=== PATIENT | male | born 1995 | race Caucasian/White ===

== ENCOUNTER 2016-03-26 15:44 | Emergency (ER) | payer OTHER ==
[~2016-03-26] VITALS: Ht 175.3 cm; Wt 97.4 kg
[~2016-03-26 15:44] MED LIST: ALBUAER2 INH; AMPH30CA3 PO; FEXO1TAB49 PO; FLUT0.15 NAE; OLOP0.6S NAE; OMEP40CA41 PO; SNG10 PO
[2016-03-26 15:52] VITALS: BP 161/80; PULSE 95; TEMP 36.9; O2SAT 97; Ht 175.3 cm; Wt 97.4 kg
--- NOTE | 2016-03-26 17:35 | EMERGENCY ROOM VISIT NOTE ---
History Report prepared by Erich: Ramila Forman Under the Supervision of: Dr. Finn Bernal M.D. First contact with patient: 15:55 Chief Complaint: COUGH Stated Complaint: GREEN DISCHARGE FROM NOSE,COUGH,LOSING VOICE History of Present Illness The patient is a 20 year old male who presents to the Emergency Room with complaints of a worsening productive cough for the past 5 days. He notes green rhinorrhea, sinus congestion, and ear pain. He has been losing his voice. His symptoms are worse at night. He rates his pain as a 4/10. The patient denies fever. Source of History: patient Onset: 5 days ago Position: chest (cough) Symptom Intensity: 4/10 Quality: other (productive) Timing: worsening Modifying Factors (Worsening): other (nighttime) Associated Symptoms: No fevers Review of Systems See HPI for pertinent positives & negatives. A total of 10 systems reviewed and were otherwise negative. Past Medical & Surgical Medical Problems: (1) ADHD (attention deficit hyperactivity disorder) (2) Asthma (3) GERD (gastroesophageal reflux disease) Family History Cancer Lung disease Seizures Social History Smoking Status: Never Smoker Alcohol Use: none Drug Use: none Marital Status: single Housing Status: lives with roommate Occupation Status: employed, [employer] student Current/Historical Medications Scheduled Amphetamine-Dextroamphetamine 30MG (Adderall Xr 30MG), 30 MG PO QAM Fexofenadine Hcl (Patsy Allergy), 1 TAB PO HS Fluticasone Propionate (Nasal) (Flonase Allergy Relief), 2 SPRAYS ELIEZER BID Montelukast Sod (Montelukast Sodium), 10 MG PO DAILY Olopatadine Hcl (Nasal) (Patanase), 2 SPRY ELIEZER BID Omeprazole (Prilosec), 40 MG PO DAILY Scheduled PRN Albuterol (Ventolin), 2 PUFFS INH Q4-6HRS PRN for SOB/Wheezing Allergies Coded Allergies: No Known Allergies (Unverified , 03/26/16) Physical Exam Vital Signs Date Time Temp Pulse Resp B/P Pulse Ox O2 Delivery O2 Flow Rate FiO2 03/26/16 16:07 96 Room Air 03/26/16 15:52 36.9 95 18 161/80 97 Room Air Physical Exam CONSTITUTIONAL: Mild distress. HEENT: No icterus, moist mucous membranes, TMs clear bilaterally, oropharynx clear. NECK: No meningismus, trachea is midline. CARDIOVASCULAR: Regular rate, normal perfusion RESPIRATORY: Unlabored breathing. Clear to auscultation. GASTROINTESTINAL: Non-tender GENITOURINARY: No flank tenderness MUSCULOSKELETAL: Full range of motion NEUROLOGIC: No acute gross focal deficits. PSYCHIATRIC: Normal affect SKIN: Normal for ethnicity. Medical Decision & Procedures ED Course 1555: Past medical records reviewed. The patient was evaluated in room C4. A complete history and physical examination was performed. At this time I discussed the results and treatment plan with the patient. I answered all pertaining questions that he had. He expressed understanding and verbalized agreement. The patient will be discharged home. Medical Decision Differential diagnoses includes viral syndrome, pneumonia. 20-year-old presented to the emergency room for evaluation of several days of upper respiratory symptoms and cough without shortness of breath. HEENT exam was normal lungs were clear. Patient advised likely viral syndrome or flu. He was counseled regarding use [id number] decongestants as well as antipyretics and analgesics and was given a [id number] prescription for a Z- Robe. Impression Primary Impression: Bronchitis Additional Impression: Upper respiratory infection Scribe Attestation The scribe's documentation has been prepared under my direction and personally reviewed by me in its entirety. I confirm that the note above accurately reflects all work, treatment, procedures, and medical decision making performed by me. Departure Information Dispostion Home / Self-Care Referrals [facility] (PCP) Forms HOME CARE DOCUMENTATION FORM, IMPORTANT VISIT INFORMATION Patient Instructions A Signature Page, ED Bronchitis Viral, My [facility] Additional Instructions For fever or pain: Take Tylenol 650mg and Motrin 600mg every 6 hours. For congestion: Afrin Nasal Mist and Pseudoephedrine Wait and see Rx :Z-robe if symptoms persist > 10 days.
== END 2016-03-26 16:08 | disposition home or self-care (01) ==
LOC: C.EDB 15:46 → C.EDC 16:08
DX: J06.9 Acute upper respiratory infection, unspecified (principal); J40 Bronchitis, not specified as acute or chronic; F90.9 Attention-deficit hyperactivity disorder, unspecified type; J45.909 Unspecified asthma, uncomplicated; K21.9 Gastro-esophageal reflux disease without esophagitis; Z80.9 Family history of malignant neoplasm, unspecified; Z83.6 Family history of other diseases of the respiratory system; Z79.899 Other long term (current) drug therapy

== ENCOUNTER 2016-07-08 22:24 | Emergency (ER) | payer OTHER ==
[~2016-07-08] VITALS: Ht 172.7 cm; Wt 101.7 kg
[2016-07-08 22:28] VITALS: TEMP 37.2; Ht 172.7 cm; Wt 101.7 kg
[2016-07-08] MEDS ORDERED: OXYMETAZOLINE HCL 0.05% NA SPR 15 ML BTL ONE (23:00)
[2016-07-08] MEDS ORDERED: BENZONATATE 100MG CAP PO ONE (23:00)
[2016-07-08] MEDS ORDERED: VNTHFA/IN INH (23:16)
[2016-07-09] MEDS ORDERED: BENZ100C18 PO (00:16)
[2016-07-09 00:27] VITALS: BP 161/94; PULSE 106; O2SAT 98
--- NOTE | 2016-07-09 03:37 | EMERGENCY ROOM VISIT NOTE ---
History Report prepared by Erich: Abdirahman Joyner Under the Supervision of: Dr. Alec Bullard D.O. First contact with patient: 22:44 Chief Complaint: ILLNESS Stated Complaint: GREEN NASAL DISCHARGE, COUGHING, DIZZINESS History of Present Illness The patient is a 20 year old male who presents to the Emergency Room with complaints of a worsening illness starting yesterday. The patient is complaining of a cough, rhinorrhea, congestion, sore throat, and vomiting twice around 1700. The patient states that he has been coughing up green mucous. He additionally states that he has been dizzy and lightheaded. He states that he has tried taking some decongestants, however they have not worked. The patient states that he has not seen his PCP, and he has a history of asthma. Pt denies headache, change in vision, fevers, chest pain, shortness of breath, diarrhea, pain with urination, and melena. Source of History: patient Onset: yesterday Position: other (global) Quality: other (illness) Timing: worsening Associated Symptoms: + cough, + sorethroat, + vomiting Note: Associated symptoms: dizziness and light headedness. Review of Systems See HPI for pertinent positives & negatives. A total of 10 systems reviewed and were otherwise negative. Past Medical & Surgical Medical Problems: (1) ADHD (attention deficit hyperactivity disorder) (2) Asthma (3) GERD (gastroesophageal reflux disease) Family History Cancer Lung disease Seizures Social History Smoking Status: Never Smoker Alcohol Use: none Drug Use: none Marital Status: single Housing Status: lives with roommate Occupation Status: employed, [employer] student Current/Historical Medications Scheduled Amphetamine-Dextroamphetamine 30MG (Adderall Xr 30MG), 30 MG PO QAM Benzonatate (Tessalon Perles), 100 MG PO TID Fexofenadine Hcl (Patsy Allergy), 1 TAB PO HS Fluticasone Propionate (Nasal) (Flonase Allergy Relief), 2 SPRAYS ELIEZER BID Montelukast Sod (Montelukast Sodium), 10 MG PO DAILY Olopatadine Hcl (Nasal) (Patanase), 2 SPRY ELIEZER BID Omeprazole (Prilosec), 40 MG PO DAILY Scheduled PRN Albuterol Hfa (Ventolin Hfa), 2 PUFFS INH Q6H PRN for SOB/Wheezing Allergies Coded Allergies: No Known Allergies (Unverified , 07/08/16) Physical Exam Vital Signs Date Time Temp Pulse Resp B/P Pulse Ox O2 Delivery O2 Flow Rate FiO2 07/09/16 00:27 106 19 161/94 98 07/08/16 22:28 37.2 113 18 143/83 96 Room Air Physical Exam GENERAL: Sitting up in bed, alert, well appearing, well nourished, no distress, non-toxic EYE EXAM: normal conjunctiva, PERRL and EOM's grossly intact OROPHARYNX: no exudate, no erythema, lips, buccal mucosa, and tongue normal and mucous membranes are moist HEAD: minimal tenderness over the maxillary sinus. No tenderness over the frontal sinus. NECK: supple, no nuchal rigidity, no adenopathy, non-tender LUNGS: Non-productive cough. Clear to auscultation. Normal chest wall mechanics HEART: no murmurs, S1 normal and S2 normal ABDOMEN: abdomen soft, non-tender, normo-active bowel sounds, no masses, no rebound or guarding. BACK: Back is symmetrical on inspection and there is no deformity, no midline tenderness, no CVA tenderness. SKIN: no rashes and no bruising UPPER EXTREMITIES: upper extremities are grossly normal. LOWER EXTREMITIES: No pitting edema. NEURO EXAM: Normal sensorium, cranial nerves II-XII grossly intact, normal speech, no gross weakness of arms, no gross weakness of legs. No drift. Gross sensation intact. Medical Decision & Procedures ER Provider Diagnostic Interpretation: Radiology results as stated below per my interpretation: CHEST X-RAY No focal infiltrate. No pneumothorax. Medications Administered Medications (Trade) Dose Ordered Sig/Brian Route Start Time Stop Time Status Last Admin Dose Admin Benzonatate (Tessalon Perles Cap) 100 mg NOW ONCE PO 07/08/16 23:00 07/08/16 23:01 DC 07/08/16 23:16 100 MG Oxymetazoline HCl (Afrin 0.05% Nasal [place]) 1 sprays NOW ONCE NA 07/08/16 23:00 07/08/16 23:01 DC 07/08/16 23:16 1 SPRAYS ED Course ED COURSE: Vital signs were reviewed and showed normal vitals The patients medical record was reviewed The above diagnostic studies were performed and reviewed. ED treatments and interventions as stated above. 2244: The patient was evaluated in room C6. A complete history and physical examination was performed. 2300: Afrin 0.05% Nasal [place] 1 spray NA, Tessalon Perles Cap 100mg PO 0001: Upon reevaluation, the patient is feeling well.I discussed my findings with the patient and he understands and agrees with the treatment plan. Based on the patients age, coexisting illnesses, exam and lab findings the decision to treat as an outpatient was made. The patient remained stable while under my care. The patient appeared well at the time of discharge. Medical Decision Differential diagnoses includes but is not limited to pneumonia, bronchitis, COPD/Asthma exacerbation, pneumothorax, pulmonary embolism, congestive heart failure, acute coronary syndrome Patient is a 20-year-old male who presents the ER with runny nose and right- sided nasal congestion. He has a small amount of tenderness over the maxillary sinuses. He also admits to a cough and a sore throat. All the symptoms have been present for 24 hours. Patient is otherwise well-appearing. Vitals show a mild tachycardia. Chest x-ray shows no focal infiltrate. Rapid strep was negative. Based on his symptoms I do favor this is likely a viral URI. He has no shortness of breath or wheezing and consequently was given no treatments for this. He was given a dose of Tessalon Perles and a prescription for his posttussive emesis. Discussed with Pt concerning signs and symptoms to watch out for. Pt was instructed to follow up with their PCP and discussed with the patient their option to return to the ED at anytime for persistent or worsening symptoms. The appropriate anticipatory guidance and out-patient management, including indications for return to the emergency department, were explained at length to the patient and understood. Impression Primary Impression: Viral URI Scribe Attestation The scribe's documentation has been prepared under my direction and personally reviewed by me in its entirety. I confirm that the note above accurately reflects all work, treatment, procedures, and medical decision making performed by me. Departure Information Dispostion Home / Self-Care Prescriptions Benzonatate (TESSALON PERLES) 100 Mg Cap 100 MG PO TID, #30 CAP Prov: Alec Bullard, DO 07/09/16 Referrals [facility] (PCP) Forms HOME CARE DOCUMENTATION FORM, IMPORTANT VISIT INFORMATION, WORK / SCHOOL INSTRUCTIONS Patient Instructions ED URI Viral, My [facility] Additional Instructions Please follow up with your primary care doctor or if you are a student [facility] with in the next 24 hours. Any worsening of your symptoms, please return to the ED immediately. Persistent fevers greater than 100.4, severe headache, stiff neck, change in vision, trouble swallowing, trouble breathing, or any other concerning signs or symptoms from your standpoint.
--- NOTE | 2016-07-09 07:58 | DIAGNOSTIC IMAGING REPORT ---
CHEST 2 VIEWS ROUTINE HISTORY: cough COMPARISON: Chest 11/23/2015. FINDINGS: The lungs are clear. Cardiac silhouette is normal in size. No pleural effusions. No pneumothorax. IMPRESSION: No acute process. Electronically signed by: Piotr Segundo M.D. 07/09/2016 7:56 AM Dictated Date/Time: 07/09/2016 7:55 AM
== END 2016-07-09 00:28 | disposition home or self-care (01) ==
LOC: C.EDB 22:25 → C.EDC 07-09 00:28
DX: J06.9 Acute upper respiratory infection, unspecified (principal); R42 Dizziness and giddiness; J45.909 Unspecified asthma, uncomplicated; K21.9 Gastro-esophageal reflux disease without esophagitis; F90.9 Attention-deficit hyperactivity disorder, unspecified type; Z79.899 Other long term (current) drug therapy; Z82.0 Family history of epilepsy and other diseases of the nervous system

== ENCOUNTER 2016-07-11 14:25 | Emergency (ER) | payer OTHER ==
[~2016-07-11] VITALS: Ht 172.7 cm; Wt 101.2 kg
[~2016-07-11 14:25] MED LIST changes: -ALBUAER2 INH; +BENZ100C18 PO; +VNTHFA/IN INH
[2016-07-11 14:32] VITALS: TEMP 37.2; Ht 172.7 cm; Wt 101.2 kg
[2016-07-11] MEDS ORDERED: AZITTAB PO (14:45)
[2016-07-11 15:14] VITALS: BP 145/88; PULSE 104; O2SAT 97
--- NOTE | 2016-07-11 15:31 | EMERGENCY ROOM VISIT NOTE ---
History Report prepared by Erich: Matthew Fierro Under the Supervision of: Dr. Thong Geiger M.D. First contact with patient: 14:38 Chief Complaint: CONGESTION Stated Complaint: CONGESTION History of Present Illness The patient is a 20 year old male who presents to the Emergency Room with complaints of a worsening illness that started a week ago. He was seen here a couple days ago and was diagnosed with a viral upper respiratory infection. The patient states that his illness started with nasal congestion, and was told here that his illness was probably something minor, but was told that if his symptoms worsened that he should come back to be evaluated. The patient says that he has started getting a cough with green phlegm, as well as a tickling sensation in his chest. The patient notes that the tickling sensation is minor. His sinus congestion has persisted, with clear drainage. The patient denies any fevers, vomiting, rashes, or tongue swelling. He has asthma. Source of History: patient Onset: A week ago Position: other (global - illness) Quality: other (cold symptoms) Timing: worsening Associated Symptoms: + cough (with green phlegm), No fevers, No rash, No vomiting Note: Associated symptoms: Sinus congestion with clear drainage. Tickling sensation in chest. Denies tongue swelling. Review of Systems See HPI for pertinent positives & negatives. A total of 10 systems reviewed and were otherwise negative. Past Medical & Surgical Medical Problems: (1) ADHD (attention deficit hyperactivity disorder) (2) Asthma (3) GERD (gastroesophageal reflux disease) Family History Cancer Lung disease Seizures Social History Smoking Status: Never Smoker Alcohol Use: none Drug Use: none Marital Status: single Housing Status: lives with roommate Occupation Status: employed, [employer] student Current/Historical Medications Scheduled Amphetamine-Dextroamphetamine 30MG (Adderall Xr 30MG), 30 MG PO QAM Azithromycin (Zithromax Z-Robe), 1 PKT PO UD Benzonatate (Tessalon Perles), 100 MG PO TID Fexofenadine Hcl (Patsy Allergy), 1 TAB PO HS Fluticasone Propionate (Nasal) (Flonase Allergy Relief), 2 SPRAYS ELIEZER BID Montelukast Sod (Montelukast Sodium), 10 MG PO DAILY Olopatadine Hcl (Nasal) (Patanase), 2 SPRY ELIEZER BID Omeprazole (Prilosec), 40 MG PO DAILY Scheduled PRN Albuterol Hfa (Ventolin Hfa), 2 PUFFS INH Q6H PRN for SOB/Wheezing Allergies Coded Allergies: No Known Allergies (Unverified , 07/11/16) Physical Exam Vital Signs Date Time Temp Pulse Resp B/P Pulse Ox O2 Delivery O2 Flow Rate FiO2 07/11/16 15:14 104 18 145/88 97 07/11/16 14:32 37.2 106 20 151/90 99 Room Air Physical Exam Constitutional: Vital signs reviewed. Eyes: Pupils are equal round reactive to light. Conjunctiva are noninjected. ENT: Pharynx is clear without erythema or exudate. Mucous membranes are moist. Neck supple without meningeal signs. Respiratory: Clear to auscultation bilaterally. Breath sounds are equal bilaterally. No wheezing. Cardiovascular: Regular rate and rhythm. No rubs or gallops. GI: Soft, nondistended and nontender. Bowel sounds are present. Musculoskeletal: No peripheral edema. No lower extremity tenderness. Integumentary: No cyanosis. Neurological: The patient is awake and alert. No focal deficits. Psychiatric: Normal affect. Medical Decision & Procedures ED Course 1438: The patient was evaluated in room C7. A complete history and physical exam was performed. The patient verbally expressed understanding and agreement of the treatment plan. The patient will be discharged. Medical Decision This is a 20-year-old male who presents with cold symptoms. I did perform a limited focused review of portions of the patient's old chart on the electronic medical record. The patient was seen here on the for nasal discharge, cough , sore throat, vomiting, and dizziness. He had a negative chest x-ray and was given Afrin and Tessalon pearls. He was diagnosed with a viral URI. I did evaluate the patient as noted above. The patient is presenting with persistent sinus congestion and now has a productive cough. He describes a tickling and as long as well. He denies any rash. He is not short of breath he has no wheezing on exam. I did discuss treatment options with the patient. He does understand that antibiotics will not help a viral illness and that discolored sputum does not indicate by itself a bacterial infection. He did wish to try a course of antibiotics and so he was discharged with a prescription for Zithromax. He was advised follow with his doctor. Impression Primary Impression: Acute bronchitis Scribe Attestation The scribe's documentation has been prepared under my direct and personally reviewed by me in its entirety. I confirm that the note above accurately reflects all work, treatment, procedures, and medical decision making performed by me. Departure Information Dispostion Home / Self-Care Prescriptions Azithromycin (ZITHROMAX Z-ROBE) 250 Mg Tab 1 PKT PO UD for 5 Days, #1 PKT Prov: Thong Geiger M.D. 07/11/16 Referrals [facility] (PCP) Forms HOME CARE DOCUMENTATION FORM, IMPORTANT VISIT INFORMATION Patient Instructions ED Bronchitis Abx Tx, My [facility] Additional Instructions You have been examined and treated today on an emergency basis only. This is not a substitute for, or an effort to provide, complete comprehensive medical care. It is impossible to recognize and treat all injuries or illnesses in a single emergency department visit. It is therefore important that you follow up closely with [facility]. Call as soon as possible for an appointment. Return for worsening symptoms or if you develop fever, vomiting, chest pain or any other concerning symptoms. Problem Qualifiers Primary Impression: Acute bronchitis Bronchitis organism: unspecified organism Qualified Codes: J20.9 - Acute bronchitis, unspecified
== END 2016-07-11 15:17 | disposition home or self-care (01) ==
LOC: C.EDB 14:27 → C.EDC 15:17
DX: J20.9 Acute bronchitis, unspecified (principal); J45.909 Unspecified asthma, uncomplicated; F90.9 Attention-deficit hyperactivity disorder, unspecified type; K21.9 Gastro-esophageal reflux disease without esophagitis; Z79.899 Other long term (current) drug therapy; Z80.9 Family history of malignant neoplasm, unspecified; Z82.0 Family history of epilepsy and other diseases of the nervous system